=== PATIENT | male | born 1990 | race Caucasian/White ===

== ENCOUNTER 2018-07-16 12:24 | Emergency (ER) | payer MEDICAID, OTHER, SELFPAY ==
[~2018-07-16] VITALS: Ht 188 cm; Wt 118.8 kg
[2018-07-16 12:35] VITALS: BP 133/71
== END 2018-07-16 13:01 | disposition home or self-care (01) ==
LOC: ED 12:55
DX: J02.9 Acute pharyngitis, unspecified (principal); F17.200 Nicotine dependence, unspecified, uncomplicated
CPT/HCPCS: 99283

== ENCOUNTER 2018-08-11 17:43 | Emergency (ER) | payer MEDICAID, OTHER ==
[~2018-08-11] VITALS: Ht 188 cm; Wt 118.4 kg
[2018-08-11 17:47] VITALS: BP 135/85
[2018-08-11] MEDS ORDERED: PROPARACAINE OPHTH 0.5%, 15ML EACHEYE STA (18:33)
[2018-08-11] MEDS ORDERED: PROPARACAINE OPHTH 0.5%, 15ML ONE (18:38)
== END 2018-08-11 19:11 | disposition home or self-care (01) ==
LOC: ED 18:42
DX: H10.023 Other mucopurulent conjunctivitis, bilateral (principal)
CPT/HCPCS: 99283